=== PATIENT | female | born 1985 | race Two or more races ===

== ENCOUNTER 2020-03-28 01:41 | Emergency (ER) | payer OTHER ==
[~2020-03-28] VITALS: Ht 160 cm; Wt 56.7 kg
[2020-03-28] MEDS ORDERED: SINGULAIR10 MG (01:55)
[2020-03-28] MEDS ORDERED: CLONAZEPAM0.5 M1 (01:56)
[2020-03-28] MEDS ORDERED: ZITHROMAX500 MG PO (10:03)
[2020-03-28] MEDS ORDERED: PEPCID AC20 MG PO (10:03)
== END 2020-03-28 13:36 | disposition home or self-care (01) ==
LOC: ER 01:41
DX: K52.89 Other specified noninfective gastroenteritis and colitis (principal); R55 Syncope and collapse; Z03.818 Encounter for observation for suspected exposure to other biological agents ruled out

== ENCOUNTER 2024-04-16 15:27 | Outpatient (CLI) | payer OTHER ==
[~2024-04-16 15:27] MED LIST: CLONAZEPAM0.5 M1; PEPCID AC20 MG PO; SINGULAIR10 MG; ZITHROMAX500 MG PO
== END 2024-04-16 15:28 | disposition home or self-care (01) ==
LOC: PRENATAL 15:27
PROVIDERS: ATTEND Obstetrics & Gynecology Maternal & Fetal Medicine
DX: O36.80X0 Pregnancy with inconclusive fetal viability, not applicable or unspecified (principal); Z36.82 Encounter for antenatal screening for nuchal translucency; O99.280 Endocrine, nutritional and metabolic diseases complicating pregnancy, unspecified trimester; O09.519 Supervision of elderly primigravida, unspecified trimester; Z3A.13 13 weeks gestation of pregnancy

== ENCOUNTER → 2024-05-29 14:14 | Outpatient (CLI) | payer OTHER | END | disposition home or self-care (01) | LOC: PRENATAL 14:14 | PROVIDERS: ATTEND Obstetrics & Gynecology Maternal & Fetal Medicine | DX: O44.00 Complete placenta previa NOS or without hemorrhage, unspecified trimester (principal); O99.280 Endocrine, nutritional and metabolic diseases complicating pregnancy, unspecified trimester; O09.519 Supervision of elderly primigravida, unspecified trimester; Z3A.19 19 weeks gestation of pregnancy ==

== ENCOUNTER 2024-08-28 15:54 | Outpatient (CLI) | payer OTHER | END 2024-08-28 15:55 | disposition home or self-care (01) | LOC: PRENATAL 15:54 | PROVIDERS: ATTEND Obstetrics & Gynecology Maternal & Fetal Medicine | DX: O26.849 Uterine size-date discrepancy, unspecified trimester (principal); O36.8199 Decreased fetal movements, unspecified trimester, other fetus; O99.280 Endocrine, nutritional and metabolic diseases complicating pregnancy, unspecified trimester; O09.519 Supervision of elderly primigravida, unspecified trimester; Z3A.33 33 weeks gestation of pregnancy ==

== ENCOUNTER 2024-10-25 16:13 | Inpatient (IN) | payer OTHER ==
[~2024-10-25] VITALS: Ht 160 cm; Wt 79.8 kg
[2024-10-25 17:03] LABS: HEMATOCRIT 38.6 % (36.0-45.00); HEMOGLOBIN 13.5 g/dL (12.0-15.00); MEAN CELL VOLUME 100.7 fL (80.00-100.00); MEAN CORPUSCULAR HEMOGLOBIN 35.2 pg (27.00-32.0); PLATELET COUNT 181 K/uL (150-450); RED BLOOD COUNT 3.83 M/uL (4.00-6.00); RED CELL DISTRIBUTION WIDTH 13.9 % (11.5-14.5)
[2024-10-25 17:14] LABS: URINE APPEARANCE Clear; URINE BACTERIA 735.4 uL (0.0-1933); URINE BILIRRUBIN Negative (NEGATIVE); URINE BLOOD Moderate; URINE COLOR Yellow; URINE EPITHELIAL CELLS 56.9 uL (0.0-38.8); URINE GLUCOSE Negative (NEGATIVE); URINE KETONE Negative (NEGATIVE); URINE LEUKOCYTE Negative; URINE NITRATE Negative; URINE PROTEIN Negative (NEGATIVE); URINE RBC 15.3 uL (0.0-20.8); URINE UROBILINOGEN 0.2 E.U./dl; URINE WBC 4.5 uL (0.0-23.2)
[2024-10-25 17:24] LABS: INR < 0.93; PARTIAL THROMBOPLASTIN TIME 25.9 SECONDS (22.0-34.0); PROTHROMBIN TIME 9.7 SECONDS (9.0-11.5)
[2024-10-25 17:53] VITALS: BP 104/71
[2024-10-25] MEDS ORDERED: CEFAZOLIN SODIUM 1,000 MG VIAL ONE (18:11)
[2024-10-25] MEDS ORDERED: CEFAZOLIN SODIUM 1,000 MG VIAL IV SCH (18:24)
[2024-10-25 19:08] LABS: URINE CAST 0.14 uL (0.0-1.40)
[2024-10-25 19:09] LABS: URINE SPERM A; URINE YEAST FEW /hpf
[2024-10-25 23:09] VITALS: BP 98/67
[2024-10-26 03:20] VITALS: BP 111/81
[2024-10-26] MEDS ORDERED: MORPHINE SULFATE 4 MG/ML CARTRIDGE IV PRN ×2 (04:45→12:30)
[2024-10-26 07:14] VITALS: BP 131/73
[2024-10-26] MEDS ORDERED: ERYTHROMYCIN BASE OPHT 1GM EACH TUBE OP ONE (08:57)
[2024-10-26] MEDS ORDERED: OXYTOCIN 10 UNITS/ML VIAL ONE (08:57)
[2024-10-26] MEDS ORDERED: MORPHINE SULFATE 4 MG/ML VIAL IV ONE (13:00)
[2024-10-26 14:10] VITALS: BP 118/76
[2024-10-26] MEDS ORDERED: KETOROLAC TROMETHAMINE 30 MG VIAL IV STA (14:23)
[2024-10-26 16:24] LABS: HEMATOCRIT 37.7 % (36.0-45.00); HEMOGLOBIN 13.3 g/dL (12.0-15.00); MEAN CELL VOLUME 100.1 fL (80.00-100.00); MEAN CORPUSCULAR HEMOGLOBIN 35.4 pg (27.00-32.0); MEAN CORPUSCULAR HGB CONC 35.4 g/dl (32.0-36.0); PLATELET COUNT 172 K/uL (150-450); RED BLOOD COUNT 3.77 M/uL (4.00-6.00)
[2024-10-26 18:00] VITALS: BP 115/79
[2024-10-27] VITALS: BP 119/67
[2024-10-27] MEDS ORDERED: ACETAMINOPHEN 325 MG TABLET PO SCH (08:00)
[2024-10-27] MEDS ORDERED: OxyCODONE HCL 5 MG TABLET (ROXICODONE) PO PRN (08:00)
[2024-10-27 08:57] VITALS: BP 119/73
[2024-10-27] MEDS ORDERED: SIMETHICONE 125 MG CAPSULE PO SCH (09:00)
[2024-10-27] MEDS ORDERED: DOCUSATE SODIUM 100MG CAP PO SCH (09:00)
[2024-10-27] MEDS ORDERED: PNV,CALCIUM 72/IRON/FOLIC ACID 1 TAB TABLET PO SCH (09:00)
[2024-10-27 12:59] VITALS: BP 99/65
[2024-10-27 16:00] VITALS: BP 124/80
[2024-10-27] MEDS ORDERED: IBUprofen 800 MG TABLET PO SCH (21:00)
[2024-10-27 23:53] VITALS: BP 116/78
[2024-10-28 12:47] VITALS: BP 126/80
[2024-10-28 20:38] VITALS: BP 136/82
[2024-10-29 00:26] VITALS: BP 147/89
[2024-10-29 05:00] VITALS: BP 131/82
[2024-10-29 08:00] VITALS: BP 112/75
[2024-10-29 16:00] VITALS: BP 124/80
== END 2024-10-29 18:33 | disposition home or self-care (01) | DRG 788 ==
LOC: OBS/DEL 16:13 → LDR 16:24 → OBS/DEL 16:31 → OB/GYN 17:45 → LDR 17:45 → OB/GYN 10-26 11:04
PROVIDERS: Obstetrics & Gynecology; ADMIT Obstetrics & Gynecology; ATTEND Obstetrics & Gynecology
PROC: BY4FZZZ Ultrasonography of Third Trimester, Single Fetus (ICD-10-PCS; 2024-10-25)
PROC: 4A1HXCZ Monitoring of Products of Conception, Cardiac Rate, External Approach (ICD-10-PCS; 2024-10-25)
PROC: 10D00Z1 Extraction of Products of Conception, Low, Open Approach (ICD-10-PCS; principal; 2024-10-26 08:00)
DX: O41.03X0 Oligohydramnios, third trimester, not applicable or unspecified (principal); O36.8130 Decreased fetal movements, third trimester, not applicable or unspecified; O33.8 Maternal care for disproportion of other origin; Z3A.40 40 weeks gestation of pregnancy; Z37.0 Single live birth